=== PATIENT | female | born 1950 | race African-American/Black ===

== ENCOUNTER 2018-01-31 09:33 | Day surgery (SDC) | payer OTHER ==
[~2018-01-31 09:33] MED LIST: Lactated Ringers 1,000 ML IV SCH; Lidocaine 2% 5 ML SDV ONE; Propofol 200 MG/20 ML SDV ONE; Sodium Chloride 0.9% 10 ML Syringe FLUSH PRN; Sodium Chloride 0.9% 2.5 ML Syringe FLUSH PRN; fentaNYL 100 MCG/2 ML SDV ONE
--- NOTE | 2018-01-31 09:57 | PCM.PREANE ---
Preanesthetic Assessment - Anesthesia/Transfusion/Family Hx Anesthesia History: Prior Anesthesia Without Reaction Family History of Anesthesia Reaction: No Transfusion History: No Prior Transfusion(s) Intubation History: Unknown - Review of Systems General: No Symptoms Pulmonary: No Symptoms Cardiovascular: No Symptoms Gastrointestinal: Other (h/o colon cancer, follow up) Neurological: No Symptoms Other: Reports: None - Physical Assessment Height: 1.6 m Weight: 76.204 kg ASA Class: 2 Mental Status: Alert & Oriented x3 Airway Class: Mallampati = 2 Dentition: Reports: Dentures (upper and lower) Thyro-Mental Finger Breadths: 3 Mouth Opening Finger Breadths: 3 ROM/Head Extension: Full Lungs: Clear to Auscultation, Normal Respiratory Effort Cardiovascular: Regular Rate, Regular Rhythm - Allergies Allergies/Adverse Reactions: Allergies Allergy/AdvReac Type Severity Reaction Status Date / Time fosinopril [From Monopril] Allergy Swelling Verified 01/28/18 08:29 - Blood Blood Available: No - Anesthesia Plan Pre-Op Medication Ordered: None - Acknowledgements Anesthesia Type Planned: MAC Pt an Appropriate Candidate for the Planned Anesthesia: Yes Alternatives and Risks of Anesthesia Discussed w Pt/Guardian: Yes Pt/Guardian Understands and Agrees with Anesthesia Plan: Yes PreAnesthesia Questionnaire HEENT History: Reports: Other (See Below) Other HEENT History: wears glasses, top and bottom denture Cardiovascular History: Reports: Hypertension Genitourinary History: Reports: None [employer]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 hemicolectomy 2014 for colon cancer), Colonoscopy (last one last year in outside facility), Other (See Below) Other GI Surgeries/Procedures: hemicolectomy for colon cancer Female Surgical History: Reports: Breast Biopsy Oncologic Surgical History: Reports: Biopsy of Breast - SUBSTANCE USE Smoking Status *Q: Never Smoker Recreational Drug Use History: No - HOME MEDS Home Medications: Home Meds amLODIPine Besylate [Amlodipine Besylate] 10 mg PO DAILY 01/28/18 [History] hydroCHLOROthiazide [Hydrochlorothiazide] 25 mg PO DAILY 01/28/18 [History] - CURRENT (IN HOUSE) MEDS Current Meds: Current Medications Lactated Ringer's (Ringers, Lactated) 1,000 mls @ 125 mls/hr IV ASDIRECTED HARDIK Sodium Chloride (Saline Flush) 10 ml FLUSH ASDIRECTED PRN PRN Reason: Keep Vein Open Sodium Chloride (Saline Flush) 2.5 ml FLUSH ASDIRECTED PRN PRN Reason: Keep Vein Open Sodium Chloride (Saline Flush) 10 ml FLUSH ASDIRECTED PRN PRN Reason: Keep Vein Open Sodium Chloride (Saline Flush) 2.5 ml FLUSH ASDIRECTED PRN PRN Reason: Keep Vein Open Discontinued Medications Fentanyl (Sublimaze) Confirm Administered Dose 100 mcg .ROUTE .STK-MED ONE Stop: 01/31/18 09:16 Lidocaine (Xylocaine-Mpf 2%) Confirm Administered Dose 5 ml .ROUTE .STK-MED ONE Stop: 01/31/18 09:16 Propofol (Diprivan 20 Ml) Confirm Administered Dose 400 mg .ROUTE .STK-MED ONE Stop: 01/31/18 09:16
--- NOTE | 2018-01-31 10:51 | PCM.OPNOTE ---
- General Post-Op/Procedure Note Date of Surgery/Procedure: 01/31/18 Operative Procedure(s): Diagnostic colonoscopy Findings: Anastamotic polyp, sigmoid polyp x 8 rectal polyp x 2 Pre Op Diagnosis: Colon cancer Post-Op Diagnosis: Multiple colon polyps Anesthesia Technique: MAC Primary Surgeon: Benita Moreno Condition: Good
[2018-01-31] MEDS ORDERED: Glycopyrrolate 0.2 MG/ML SDV ONE (11:01)
--- NOTE | 2018-01-31 11:04 | PCM.POSTAN ---
POST ANESTHESIA ASSESSMENT - MENTAL STATUS Mental Status: Alert - RESPIRATORY Respiratory Status: Respiratory Rate WNL, Airway Patent, O2 Saturation Stable - CARDIOVASCULAR CV Status: Pulse Rate WNL, Blood Pressure Stable - GASTROINTESTINAL GI Status: No Symptoms - PAIN Pain Score: 0 - POST OP HYDRATION Hydration Status: Adequate & Stable - OBSERVATIONS Free Text/Narrative:: no anesthesia problems
--- NOTE | 2018-01-31 13:06 | OR ---
SURGEON: FANI DOWNS MD DATE OF PROCEDURE: 01/31/2018 PREOPERATIVE DIAGNOSIS: History of colon cancer. POSTOPERATIVE DIAGNOSES: 1. Anastomotic polyp. 2. Sigmoid colon polyp x8. 3. Rectal polyps x2. PROCEDURE PERFORMED: Diagnostic colonoscopy. ANESTHESIA: MAC. INSTRUMENT USED: Olympus colonoscope. EXTENT OF EXAM: To the small bowel colonic anastomosis. PREPARATION: Good. LIMITATIONS: None. INDICATION FOR EXAMINATION: The patient is a 67-year-old female with history of colon cancer. She had a colonoscopy last year and was found to have multiple polyps. It was recommended that she undergo another colonoscopy this year. The patient and I discussed the procedure, expected perioperative course, and risks including bleeding, infection, or damage to surrounding structures including perforation. The patient verbalized understanding and wishes to proceed. PROCEDURE IN DETAIL: The patient was brought to the endoscopy suite and placed in the left lateral decubitus position. A time-out was completed verifying the patient's name, age, date of , allergies, and procedure to be performed. Monitored anesthesia care was induced and continuous oxygen was provided via nasal cannula throughout the procedure. After adequate sedation was achieved, a digital rectal exam was performed. This exam was within normal limits. A well lubricated colonoscope was inserted in the rectum and advanced under direct visualization to her anastomotic line. The patient had a previous right hemicolectomy. The anastomotic line appeared to be intact. There was a small linear polyp located along the anastomotic line within the large intestine. A photograph of this was taken and then I removed the polyp using a cold biopsy forceps in piecemeal fashion. A photograph was taken after this was completed. The scope was then fully withdrawn while examining the remainder of the colon. The patient was found to have multiple polyps within her distal sigmoid colon and in the proximal rectum. These were all very small and removed in piecemeal fashion using a cold biopsy forceps. There were eight in total in the sigmoid colon and two in the proximal rectum. The scope was then retroflexed within the rectum to allow visualization of the anal canal opening. This appeared normal and a photograph was taken. The scope was then straightened out and fully withdrawn. The total time from anastomotic line to completion was 23 minutes. The patient tolerated the procedure well and was taken to PACU in stable condition. ENDOSCOPIC DIAGNOSES: 1. Anastomotic polyp. 2. Sigmoid colon polyp x8. 3. Rectal polyps x2. RECOMMENDATIONS: Follow up in clinic in 2 weeks. JOHNNY / CARRILLO /[id number]
== END 2018-01-31 11:25 | disposition home or self-care (01) ==
LOC: MW.SDS 09:33
PROVIDERS: ATTEND Surgery
DX: K63.5 Polyp of colon (principal); K62.1 Rectal polyp; I10 Essential (primary) hypertension; E66.9 Obesity, unspecified; Z68.29 Body mass index [BMI] 29.0-29.9, adult; Z90.49 Acquired absence of other specified parts of digestive tract; Z88.8 Allergy status to other drugs, medicaments and biological substances; Z79.899 Other long term (current) drug therapy; Z85.038 Personal history of other malignant neoplasm of large intestine; Z86.010 Personal history of colon polyps
CPT/HCPCS: 45380; J2704; J3010; J3490; J7120

== ENCOUNTER 2018-02-16 19:16 | Emergency (ER) | payer OTHER ==
--- NOTE | 2018-02-16 19:39 | EDM.PDOC ---
ED HPI GENERAL MEDICAL PROBLEM - General Chief Complaint: Genitourinary Problem Stated Complaint: SEEING BLOOD AFTER A COLONOSOPY Time Seen by Provider: 02/16/18 19:30 - History of Present Illness INITIAL COMMENTS - FREE TEXT/NARRATIVE: HISTORY AND PHYSICAL: History of present illness: The patient is a 67-year-old female who has a history of colon cancer in 2014 for which she underwent a right hemicolectomy and recently had a screening colonoscopy done here on January 31 which revealed polyps in both the sigmoid and rectal areas and on follow-up the biopsies revealed no evidence of any cancer. The patient says that she presents here tonight because when she wiped after having a bowel movement this morning she noticed some blood on the toilet paper and she was concerned. She is not seeing blood in her stools and she is not having any pain in her rectal area or her anus. She has no fevers chills nausea or vomiting and did have one loose stool today which was not black or bloody. She says she has some slight discomfort at her right upper quadrant but only when she pushes on it not when she is sitting at rest. She's eating and drinking normally and is not lightheaded or dizzy. She said she was told if she had any episodes of blood that she should return to the ED. She said she monitored through the day and she has not had to use a pad and she is not bleeding in her underwear. She says she only sees the blood on the toilet paper. She denies it is coming from the vagina or the urine. When I specifically asked the patient if there is any blood from her vagina she absolutely denies this and says it is from her rectum and she is very careful about evaluating this. Review of systems: As per history of present illness and below otherwise all systems reviewed and negative. Past medical history: As per history of present illness and as reviewed below otherwise noncontributory. Surgical history: As per history of present illness and as reviewed below otherwise noncontributory. Social history: No reported history of drug or alcohol abuse. Family history: As per history of present illness and as reviewed below otherwise noncontributory. Physical exam: General: Well-developed well-nourished female who is nontoxic and vital signs were noted by me. Her initial blood pressure is noted but on my evaluation her blood pressure is reading 163/78 HEENT: Atraumatic, normocephalic, , negative for conjunctival pallor or scleral icterus, mucous membranes moist, throat clear, neck supple, nontender, trachea midline. Lungs: Clear to auscultation, breath sounds equal bilaterally, chest nontender. Heart: S1S2, regular rate and rhythm no overt murmurs Abdomen: Soft, nondistended, nontender. Normoactive bowel sounds. On palpation there is no rebound guarding or tenderness specifically on the right side. Negative for masses or hepatosplenomegaly. Negative for costovertebral tenderness. Pelvis: Stable nontender. Genitourinary: Deferred. Rectal: External exam is within normal limits and there is no fissure or lesions seen. There are no masses tenderness or lesions appreciated on digital exam and the stool is brown with a scant amount high in the vault. It is Hemoccult negative. Extremities: Atraumatic, negative for cords or calf pain. Neurovascular unremarkable. Neuro: Awake, alert, oriented. Cranial nerves II through XII unremarkable. Cerebellum unremarkable. Motor and sensory unremarkable throughout. Exam nonfocal. Diagnostics: CBC CMP UA INR Therapeutics: 2039: case was discussed with Dr Moreno; she agrees with follow up in the clinic as needed and with her care physician. I've inform the patient of her testing results and need to continue to monitor the symptoms and see her provider in the clinic for further evaluation Impression: Rectal bleeding Definitive disposition and diagnosis as appropriate pending reevaluation and review of above. 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: Musculoskeletal History: Reports: Fracture Other Musculoskeletal History: hx fx hand Oncologic (Cancer) History: Reports: Colon - Infectious Disease History Infectious Disease History: Reports: None - Past Surgical History Head Surgeries/Procedures: Reports: None GI Surgical History: Reports: Colon, Colonoscopy, Other (See Below) Other GI Surgeries/Procedures: hemicolectomy for colon cancer Female Surgical History: Reports: Breast Biopsy Oncologic Surgical History: Reports: Biopsy of Breast Social & Family History - Family History Family Medical History: Noncontributory - Tobacco Use Smoking Status *Q: Unknown Ever Smoked - Caffeine Use Caffeine Use: Reports: None - Recreational Drug Use Recreational Drug Use: No ED ROS GENERAL - Review of Systems Review Of Systems: ROS reveals no pertinent complaints other than HPI. ED EXAM, GENERAL - Physical Exam Exam: See Below (see dictation) Course - Vital Signs Last Recorded V/S: Last Vital Signs Temp 36.9 C 02/16/18 20:34 Pulse 70 02/16/18 20:34 Resp 18 02/16/18 20:34 BP 144/69 H 02/16/18 20:34 Pulse Ox 98 02/16/18 20:34 - Orders/Labs/Meds Labs: Laboratory Tests 02/16/18 02/16/18 02/16/18 Range/Units 19:40 19:45 19:45 WBC 6.69 (4.0-11.0) K/uL RBC 4.65 (4.30-5.90) M/uL Hgb 13.6 (12.0-16.0) g/dL Hct 40.5 (36.0-46.0) % MCV 87.1 (80.0-98.0) fL MCH 29.2 (27.0-32.0) pg MCHC 33.6 (31.0-37.0) g/dL RDW Std Deviation 43.9 (28.0-62.0) fl RDW Coeff of Faraz 14 (11.0-15.0) % Plt Count 291 (150-400) K/uL MPV 11.40 (7.40-12.00) fL Neut % (Auto) 46.6 L (48.0-80.0) % Lymph % (Auto) 41.9 H (16.0-40.0) % [place] % (Auto) 9.0 (0.0-15.0) % Eos % (Auto) 2.1 (0.0-7.0) % Baso % (Auto) 0.4 (0.0-1.5) % Neut # (Auto) 3.1 (1.4-5.7) K/uL Lymph # (Auto) 2.8 H (0.6-2.4) K/uL [place] # (Auto) 0.6 (0.0-0.8) K/uL Eos # (Auto) 0.1 (0.0-0.7) K/uL Baso # (Auto) 0.0 (0.0-0.1) K/uL Nucleated RBC % 0.0 /100WBC Nucleated RBCs # 0 K/uL INR 0.96 Sodium (136-145) mmol/L Potassium (3.5-5.1) mmol/L Chloride (98-107) mmol/L Carbon Dioxide (21.0-32.0) mmol/L BUN (7.0-18.0) mg/dL Creatinine (0.6-1.0) mg/dL Est Cr Clr Drug Dosing mL/min Estimated GFR (MDRD) ml/min Glucose (74-106) mg/dL Calcium (8.5-10.1) mg/dL Total Bilirubin (0.2-1.0) mg/dL AST (15-37) IU/L ALT (14-63) IU/L Alkaline Phosphatase (46-116) U/L Total Protein (6.4-8.2) g/dL Albumin (3.4-5.0) g/dL Globulin (2.0-3.5) g/dL Albumin/Globulin Ratio (1.3-2.8) Urine Color YELLOW Urine Appearance CLEAR Urine pH 5.5 (5.0-8.0) Ur Specific [place] 1.025 (1.001-1.035) Urine Protein NEGATIVE (NEGATIVE) mg/dL Urine Glucose (UA) NEGATIVE (NEGATIVE) mg/dL Urine Ketones NEGATIVE (NEGATIVE) mg/dL Urine Occult Blood TRACE-LYSED (NEGATIVE) Urine Nitrite NEGATIVE (NEGATIVE) Urine Bilirubin NEGATIVE (NEGATIVE) Urine Urobilinogen 0.2 (<2.0) EU/dL Ur Leukocyte Esterase NEGATIVE (NEGATIVE) Urine RBC 0-2 (0-2/HPF) Urine WBC 0-3 (0-5/HPF) Ur Epithelial Cells OCCASIONAL (NONE-FEW) Urine Bacteria FEW (NEGATIVE) 02/16/18 Range/Units 19:45 WBC (4.0-11.0) K/uL RBC (4.30-5.90) M/uL Hgb (12.0-16.0) g/dL Hct (36.0-46.0) % MCV (80.0-98.0) fL MCH (27.0-32.0) pg MCHC (31.0-37.0) g/dL RDW Std Deviation (28.0-62.0) fl RDW Coeff of Faraz (11.0-15.0) % Plt Count (150-400) K/uL MPV (7.40-12.00) fL Neut % (Auto) (48.0-80.0) % Lymph % (Auto) (16.0-40.0) % [place] % (Auto) (0.0-15.0) % Eos % (Auto) (0.0-7.0) % Baso % (Auto) (0.0-1.5) % Neut # (Auto) (1.4-5.7) K/uL Lymph # (Auto) (0.6-2.4) K/uL [place] # (Auto) (0.0-0.8) K/uL Eos # (Auto) (0.0-0.7) K/uL Baso # (Auto) (0.0-0.1) K/uL Nucleated RBC % /100WBC Nucleated RBCs # K/uL INR Sodium 142 (136-145) mmol/L Potassium 4.1 (3.5-5.1) mmol/L Chloride 108 H (98-107) mmol/L Carbon Dioxide 24.0 (21.0-32.0) mmol/L BUN 19 H (7.0-18.0) mg/dL Creatinine 0.8 (0.6-1.0) mg/dL Est Cr Clr Drug Dosing 57.99 mL/min Estimated GFR (MDRD) > 60.0 ml/min Glucose 108 H (74-106) mg/dL Calcium 9.4 (8.5-10.1) mg/dL Total Bilirubin 0.3 (0.2-1.0) mg/dL AST 19 (15-37) IU/L ALT 30 (14-63) IU/L Alkaline Phosphatase 148 H (46-116) U/L Total Protein 7.9 (6.4-8.2) g/dL Albumin 3.8 (3.4-5.0) g/dL Globulin 4.1 H (2.0-3.5) g/dL Albumin/Globulin Ratio 0.9 L (1.3-2.8) Urine Color Urine Appearance Urine pH (5.0-8.0) Ur Specific [place] (1.001-1.035) Urine Protein (NEGATIVE) mg/dL Urine Glucose (UA) (NEGATIVE) mg/dL Urine Ketones (NEGATIVE) mg/dL Urine Occult Blood (NEGATIVE) Urine Nitrite (NEGATIVE) Urine Bilirubin (NEGATIVE) Urine Urobilinogen (<2.0) EU/dL Ur Leukocyte Esterase (NEGATIVE) Urine RBC (0-2/HPF) Urine WBC (0-5/HPF) Ur Epithelial Cells (NONE-FEW) Urine Bacteria (NEGATIVE) Departure - Departure Time of Disposition: 20:44 Disposition: Home, Self-Care 01 Condition: Good Clinical Impression: Rectal bleeding - Discharge Information Referrals: PCP,None [Primary Care Provider] - Forms: ED Department Discharge Additional Instructions: The following information is given to patients seen in the emergency department who are being discharged to home. This information is to outline your options for follow-up care. We provide all patients seen in our emergency department with a follow-up referral. The need for follow-up, as well as the timing and circumstances, are variable depending upon the specifics of your emergency department visit. If you don't have a primary care physician on staff, we will provide you with a referral. We always advise you to contact your personal physician following an emergency department visit to inform them of the circumstance of the visit and for follow-up with them and/or the need for any referrals to a consulting specialist. The emergency department will also refer you to a specialist when appropriate. This referral assures that you have the opportunity for followup care with a specialist. All of these measure are taken in an effort to provide you with optimal care, which includes your followup. Under all circumstances we always encourage you to contact your private physician who remains a resource for coordinating your care. When calling for followup care, please make the office aware that this follow-up is from your recent emergency room visit. If for any reason you are refused follow-up, please contact the [facility] emergency department at and ask to speak to the emergency department charge nurse. [facility] Primary care- Internal Medicine and Family Psychiatric [address] [place] [id number] [facility]-General Surgery Professional Building [address] [place] [id number] Please continue to monitor symptoms and schedule follow-up in the clinic if the symptoms persist. Increase fiber in your diet push hydration and return to ER as needed and as discussed
[2018-02-16 20:14] LABS: CHLORIDE,CL 108 mmol/L (98-107); SODIUM,NA 142 mmol/L (136-145)
== END 2018-02-16 20:55 | disposition home or self-care (01) ==
LOC: MW.ED 19:16
DX: K62.5 Hemorrhage of anus and rectum (principal); I10 Essential (primary) hypertension; Z88.8 Allergy status to other drugs, medicaments and biological substances
CPT/HCPCS: 36415; 80053; 81001; 85025; 85610; 99283

== ENCOUNTER 2020-07-14 09:43 | Day surgery (SDC) | payer OTHER ==
[~2020-07-14 09:43] MED LIST changes: +Sodium Chloride 0.9% 10 ML SDV IV PRN; -fentaNYL 100 MCG/2 ML SDV ONE
--- NOTE | 2020-07-14 12:18 | PCM.PREANE ---
Preanesthetic Assessment - Anesthesia/Transfusion/Family Hx Anesthesia History: Prior Anesthesia Without Reaction Family History of Anesthesia Reaction: No Transfusion History: No Prior Transfusion(s) Intubation History: Unknown - Review of Systems General: No Symptoms Pulmonary: No Symptoms Cardiovascular: No Symptoms Gastrointestinal: No Symptoms, Other (h/o colon cancer '15 ) Neurological: No Symptoms Other: Reports: None - Physical Assessment Vital Signs: Last Vital Signs Temp 36 C L 07/14/20 10:19 Pulse 81 07/14/20 10:19 Resp 16 07/14/20 10:19 BP 165/84 H 07/14/20 10:19 Pulse Ox 97 07/14/20 10:19 Height: 5 ft 3 in Weight: 82.554 kg ASA Class: 2 Mental Status: Alert & Oriented x3 Airway Class: Mallampati = 2 Dentition: Reports: Dentures (upper and lower) Thyro-Mental Finger Breadths: 3 Mouth Opening Finger Breadths: 3 ROM/Head Extension: Full Lungs: Clear to Auscultation, Normal Respiratory Effort Cardiovascular: Regular Rate, Regular Rhythm - Allergies Allergies/Adverse Reactions: Allergies Allergy/AdvReac Type Severity Reaction Status Date / Time fosinopril [From Monopril] Allergy Swelling Verified 07/14/20 10:24 - Blood Blood Available: No - Anesthesia Plan Pre-Op Medication Ordered: None - Acknowledgements Anesthesia Type Planned: MAC Pt an Appropriate Candidate for the Planned Anesthesia: Yes Alternatives and Risks of Anesthesia Discussed w Pt/Guardian: Yes Pt/Guardian Understands and Agrees with Anesthesia Plan: Yes PreAnesthesia Questionnaire HEENT History: Reports: Other (See Below) Other HEENT History: wears glasses, top and bottom denture Cardiovascular History: Reports: High Cholesterol, Hypertension Respiratory History: Reports: None Gastrointestinal History: Reports: Colon Polyp 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: Musculoskeletal History: Reports: Back Pain, Chronic, Fracture Other Musculoskeletal History: hx fx arm Neurological History: Reports: None Psychiatric History: Reports: None Endocrine/Metabolic History: Reports: Obesity/BMI 30+ (BMI 32.2) Hematologic History: Reports: None Immunologic History: Reports: None Oncologic (Cancer) History: Reports: Colon Dermatologic History: Reports: Eczema - Infectious Disease History Infectious Disease History: Reports: None - Past Surgical History Head Surgeries/Procedures: Reports: None HEENT Surgical History: Reports: None Cardiovascular Surgical History: Reports: None Respiratory Surgical History: Reports: None GI Surgical History: Reports: Colonoscopy ( x3), Other (See Below) Other GI Surgeries/Procedures: right hemicolectomy for colon cancer in 2015 Female Surgical History: Reports: Breast Biopsy Endocrine Surgical History: Reports: None Neurological Surgical History: Reports: None Musculoskeletal Surgical History: Reports: None Oncologic Surgical History: Reports: Biopsy of Breast, Other (See Below) Other Oncologic Surgeries/Procedures: right hemicolectomy Dermatological Surgical History: Reports: None - SUBSTANCE USE Tobacco Use Status *Q: Never Tobacco User Recreational Drug Use History: No - HOME MEDS Home Medications: Home Meds amLODIPine Besylate [Amlodipine Besylate] 10 mg PO DAILY 01/28/18 [History] hydroCHLOROthiazide [Hydrochlorothiazide] 25 mg PO DAILY 01/28/18 [History] Hydrocortisone [Hydrocortisone 2.5% Crm] 1 applic TOP ASDIRECTED PRN 07/09/20 [History] - CURRENT (IN HOUSE) MEDS Current Meds: Current Medications Lactated Ringer's (Ringers, Lactated) 1,000 mls @ 125 mls/hr IV ASDIRECTED HARDIK Last Admin: 07/14/20 10:23 Dose: 125 mls/hr Documented by: Sodium Chloride (Saline Flush) 2.5 ml FLUSH ASDIRECTED PRN PRN Reason: Keep Vein Open Sodium Chloride (Normal Saline) 10 ml IV ASDIRECTED PRN PRN Reason: IV Use Discontinued Medications Lidocaine (Xylocaine-Mpf 2%) Confirm Administered Dose 5 ml .ROUTE .STK-MED ONE Stop: 07/14/20 06:42 Propofol (Diprivan 20 Ml) Confirm Administered Dose 200 mg .ROUTE .STK-MED ONE Stop: 07/14/20 06:40 Propofol (Diprivan 20 Ml) Confirm Administered Dose 200 mg .ROUTE .STK-MED ONE Stop: 07/14/20 06:40
[2020-07-14] MEDS ORDERED: fentaNYL 100 MCG/2 ML SDV ONE (13:27)
--- NOTE | 2020-07-14 14:55 | PCM.POSTAN ---
POST ANESTHESIA ASSESSMENT - MENTAL STATUS Mental Status: Alert (Late entry, assessed at 1445), Oriented - VITAL SIGNS Vital Signs: Last Vital Signs Temp 36.5 C 07/14/20 14:28 Pulse 70 07/14/20 14:39 Resp 15 07/14/20 14:39 BP 119/69 07/14/20 14:39 Pulse Ox 97 07/14/20 14:39 - RESPIRATORY Respiratory Status: Respiratory Rate WNL, Airway Patent, O2 Saturation Stable - CARDIOVASCULAR CV Status: Pulse Rate WNL, Blood Pressure Stable - GASTROINTESTINAL GI Status: No Symptoms - PAIN Pain Score: 0 (Denies pain) - POST OP HYDRATION Hydration Status: Adequate & Stable
--- NOTE | 2020-07-14 14:55 | PCM48HPAN ---
Post Anesthesia Note - EVALUATION WITHIN 48HRS OF ANESTHETIC Vital Signs in Normal Range: Yes Patient Participated in Evaluation: Yes Respiratory Function Stable: Yes Airway Patent: Yes Cardiovascular Function Stable: Yes Hydration Status Stable: Yes Pain Control Satisfactory: Yes (Denies pain) Nausea and Vomiting Control Satisfactory: Yes Mental Status Recovered: Yes Vital Signs: Last Vital Signs Temp 36.5 C 07/14/20 14:28 Pulse 70 07/14/20 14:39 Resp 15 07/14/20 14:39 BP 119/69 07/14/20 14:39 Pulse Ox 97 07/14/20 14:39
--- NOTE | 2020-07-14 15:03 | PCM.OPNOTE ---
- General Post-Op/Procedure Note Date of Surgery/Procedure: 07/14/20 Operative Procedure(s): Diagnostic colonoscopy with polypectomy Findings: Polyp along previous staple line. Polyp in sigmoid colon. Rectal polyp x 2 Pre Op Diagnosis: History of colon cancer Post-Op Diagnosis: Rectal polyp x 2, sigmoid colon polyp, anastamotic polyp Anesthesia Technique: [facility] Primary Surgeon: Benita Moreno Condition: Good
--- NOTE | 2020-07-15 14:54 | OR ---
SURGEON: BENITA MORENO MD DATE OF PROCEDURE: 07/14/2020 PREOPERATIVE DIAGNOSIS: History of colon cancer. POSTOPERATIVE DIAGNOSES: 1. Sigmoid colon polyp x1. 2. Rectal polyp x2. 3. Diverticulosis. 4. Anastomotic polyp x1. PROCEDURE PERFORMED: Diagnostic colonoscopy with polypectomy. PRIMARY SURGEON: Benita Moreno MD ANESTHESIA: MAC. INSTRUMENT USED: Olympus colonoscope. EXTENT OF EXAM: To the anastomosis. PREPARATION: Good. LIMITATIONS: None. INDICATIONS FOR EXAMINATION: The patient is a 70-year-old female who is 5 years status post a right hemicolectomy for colon cancer. She is due for a repeat colonoscopy. The patient has been having some abdominal discomfort. A CEA was performed preoperatively, which was normal. The patient and I discussed the need for diagnostic colonoscopy. I explained the procedure, expected perioperative course, and the risks. She verbalized understanding and wishes to proceed. PROCEDURE IN DETAIL: The patient was brought into the endoscopy suite and placed in the left lateral decubitus position. A time-out was completed verifying the patient's name, age, date of , allergies, and procedure to be performed. Monitored anesthesia care was induced and continuous oxygen was provided via nasal cannula throughout the procedure. After adequate sedation was achieved, a digital rectal exam was performed. This exam was within normal limits. A well-lubricated colonoscope was inserted in the rectum and advanced under direct visualization to the level of the anastomosis. A photograph of this area was taken. I then slowly withdrew the colonoscope while examining the color, texture, anatomy, and integrity of the mucosa of the colon. At the anastomotic line, there was a raised area concerning for a polyp. Using cold biopsy forceps, I performed a biopsy of this area. It appeared to be along the staple line. The raised tissue was completely removed and sent to pathology, labeled as anastomotic polyp. The remainder of the anastomosis appeared normal. In the sigmoid colon, the patient was found to have one sessile polyp. This was removed in piecemeal fashion using cold biopsy forceps. In the area of the distal colon, the patient was noted to have scattered diverticula. The scope was brought into the rectum and two small sessile polyps were noted. These were removed in piecemeal fashion using cold biopsy forceps and sent to pathology, labeled as rectal polyp. The scope was then retroflexed within the rectum to allow visualization of the anal canal opening. This appeared normal and a photograph was taken. The scope was then straightened out and fully withdrawn. The cecum to anus time was 16 minutes. The patient tolerated the procedure well and was transferred to the PACU in stable condition. ENDOSCOPIC DIAGNOSES: 1. Sigmoid colon polyp x1. 2. Rectal polyp x2. 3. Diverticulosis. 4. Anastomotic polyp x1. RECOMMENDATIONS: Follow up in clinic in 2 weeks. JOHNNY VIZCAINO /[id number]
== END 2020-07-14 15:10 | disposition home or self-care (01) ==
LOC: MW.SDS 09:43
PROVIDERS: ATTEND Surgery
DX: Z12.11 Encounter for screening for malignant neoplasm of colon (principal); K63.5 Polyp of colon; K57.30 Diverticulosis of large intestine without perforation or abscess without bleeding; K62.1 Rectal polyp; I10 Essential (primary) hypertension; E78.00 Pure hypercholesterolemia, unspecified; E66.9 Obesity, unspecified; Z88.8 Allergy status to other drugs, medicaments and biological substances; Z79.899 Other long term (current) drug therapy; Z98.890 Other specified postprocedural states; Z68.32 Body mass index [BMI] 32.0-32.9, adult; Z90.49 Acquired absence of other specified parts of digestive tract
CPT/HCPCS: 45380; 88305; J2704; J3010; J7120

== ENCOUNTER 2024-02-14 08:20 | Day surgery (SDC) | payer OTHER ==
[~2024-02-14 08:20] MED LIST changes: -Lactated Ringers 1,000 ML IV SCH; -Lidocaine 2% 5 ML SDV ONE; -Propofol 200 MG/20 ML SDV ONE; -Sodium Chloride 0.9% 10 ML SDV IV PRN; +Sodium Chloride 0.9% 20 ML SDV IV PRN
[2024-02-14] MEDS ORDERED: Lidocaine 2% 5 ML SDV ONE (08:41)
[2024-02-14] MEDS ORDERED: Propofol 200 MG/20 ML SDV ONE ×2 (08:42)
[2024-02-14] MEDS: Lactated Ringers 1,000 ML IV SCH (08:50)
== END 2024-02-14 11:10 | disposition home or self-care (01) ==
LOC: MW.SDS 08:20
PROVIDERS: ATTEND Surgery
DX: D12.3 Benign neoplasm of transverse colon (principal); K57.30 Diverticulosis of large intestine without perforation or abscess without bleeding; Z86.0100 Personal history of colon polyps, unspecified; I10 Essential (primary) hypertension; E78.00 Pure hypercholesterolemia, unspecified; E66.9 Obesity, unspecified; Z79.899 Other long term (current) drug therapy
CPT/HCPCS: 45380; J2704; J7120; 00811; 99100; J3490